=== PATIENT | male | born 1995 | race African-American/Black ===

== ENCOUNTER 2020-04-23 00:39 | Emergency (ER) | payer SELFPAY ==
[2020-04-23 01:44] LABS: Bacteria/HPF None Seen HPF (None Seen); Bilirubin Negative (Negative); Blood, Urine 1+ (Negative); Calcium Oxalate Crystals 3+ HPF (None Seen); Clarity Extra Turbid (Clear); Glucose, Urine (Dipstick) Normal (Negative); Ketone, Urine Negative (Negative); Leukocyte 500 Leu/uL (Negative); Nitrite Negative (Negative); Protein, Urine (Dipstick) 50 mg/dL (Neg-Trace); RBC/HPF 21-50 HPF (0-3); Specific Gravity, Urine 1.032 (1.002-1.036); Squamous Epithelial None Seen HPF (0-3); Urobilinogen Normal mg/dL (Less than 2); WBC/HPF Greater than 50 HPF (0-3); pH, Urine 5.5 (5.0-9.0)
[2020-04-23] MEDS ORDERED: Lidocaine 1% (PF) 30 ML VIAL ONE (03:12)
[2020-04-23] MEDS ORDERED: cefTRIAXone\\ROCEPHIN 500 MG VIAL ONE (03:12)
[2020-04-25 21:33] LABS: Chlam.trachomatis by PCR,Urine Inconclusive (NotDetected)
== END 2020-04-23 03:47 | disposition home or self-care (01) ==
LOC: ERS 00:39
DX: N34.2 Other urethritis (principal); F17.210 Nicotine dependence, cigarettes, uncomplicated
CPT/HCPCS: 81003; 81015; 87491; 87591; 96372; 99283; J0696; J2001